=== PATIENT | female | born 2000 | race Caucasian/White ===

== ENCOUNTER 2024-01-15 17:43 | Inpatient (IN) | payer BC ==
[2024-01-15 18:16] VITALS: BMI 43.7
[2024-01-15] MEDS ORDERED: Zolpidem Tartrate 5 MG TAB PO PRN (20:02)
[2024-01-15] MEDS ORDERED: Ibuprofen 800 MG TAB PO PRN (20:02)
[2024-01-15] MEDS ORDERED: Lidocaine 1% (PF) 30 ML VIAL SC PRN (20:02)
[2024-01-15] MEDS ORDERED: HYDROcodone/Acetaminophen 5/325 mg Tablet PO PRN (20:02)
[2024-01-15] MEDS ORDERED: fentaNYL 50 mcg/mL 1 mL Vial SLOW IVP PRN (20:02)
[2024-01-15] MEDS ORDERED: Acetaminophen 500 MG TAB PO PRN (20:02)
[2024-01-15] MEDS ORDERED: Promethazine HCl 25 MG/ML VIAL IM PRN (20:02)
[2024-01-15] MEDS ORDERED: hydrALAZINE 20 MG/ML VIAL SLOW IVP PRN (20:02)
[2024-01-15] MEDS ORDERED: Oxytocin 30 units/NS 500 ML 500 ML IV SCH (20:15)
[2024-01-15 20:18] LABS: Hematocrit 31.6 % (34.9-44.5); Hemoglobin 10.4 g/dL (12.0-15.5); Mean Corpuscular HGB CONC 32.9 g/dL (32.0-36.0); Mean Corpuscular Volume 82.1 fL (81.6-98.3); Platelet Count 302 10x3/uL (150-450); RBC Distribution Width 14.7 % (11.5-14.5); Red Blood Cell (RBC) Count 3.85 10x6/uL (3.90-5.03); White Blood Cell (WBC) Count 10.1 10x3/uL (3.5-10.5)
[2024-01-15 20:28] LABS: ALT (SGPT) 10 U/L (8-55); AST (SGOT) 12 U/L (5-34); Alkaline Phosphatase 145 U/L (40-110); Anion Gap 14 mmol/L (10-20); BUN (Urea Nitrogen) 10 mg/dL (7.0-18.7); Bilirubin, Total 0.2 mg/dL (0.2-1.2); Calc. Creatinine Clearance 216 mL/min (70-130); Carbon Dioxide 21 mmol/L (22-29); Chloride 105 mmol/L (98-107); Estimated GFR 117; Glucose 90 mg/dL (70-105); Potassium 3.7 mmol/L (3.5-5.1); Sodium 136 mmol/L (136-145)
[2024-01-15] MEDS: Lactated Ringer's 1,000 ML IV SCH (21:22)
[2024-01-15 22:47] LABS: Syphilis Antibody Nonreactive (Nonreactive); Syphilis Antibody Index 0.07 S/CO (<1.00 Non-Reactive)
[2024-01-15 22:48] LABS: HBsAg Index 0.17 S/CO (0-0.99); Hep B Surf Ag - L&D Non-Reactive S/CO (NonReactive)
[2024-01-16] MEDS: Misoprostol 100 MCG TAB VAG SCH (02:16)
[2024-01-16] MEDS: Oxytocin 30 units/NS 500 ML 500 ML IV SCH (07:01)
[2024-01-16] MEDS: fentaNYL/Ropivacaine Epidural 100 ML ONE (09:04)
[2024-01-16] MEDS ORDERED: Ondansetron PF 4 MG/2 ML Vial IVP PRN ×2 (09:07→17:12)
[2024-01-16] MEDS ORDERED: Acetaminophen 325 MG TAB PO PRN (09:07)
[2024-01-16] MEDS ORDERED: Naloxone HCl 0.4 mg/ml Vial IVP PRN ×2 (09:07)
[2024-01-16] MEDS ORDERED: diphenhydrAMINE 50 MG/ML VIAL IVP PRN (09:07)
[2024-01-16] MEDS ORDERED: Promethazine HCl 25 MG/ML VIAL IM PRN ×2 (09:07→17:12)
[2024-01-16] MEDS ORDERED: Lactated Ringer's 500 ML IV PRN (09:07)
[2024-01-16] MEDS ORDERED: Moisturizing Cream (Eucerin) 113 GM JAR TOP PRN (09:07)
[2024-01-16] MEDS ORDERED: ePHEDrine Sulfate 50 MG/10 ML VIAL SLOW IVP PRN (09:07)
[2024-01-16] MEDS ORDERED: Communication Order-Pharmacy FS SCH (09:15)
[2024-01-16] MEDS ORDERED: fentaNYL 2 mcg/Ropivacaine 0.2% Epidural 100 ML CADD EPIDURAL SCH (09:15)
[2024-01-16] MEDS: Ondansetron PF 4 MG/2 ML Vial IVP PRN (10:48)
[2024-01-16] MEDS: Misoprostol 200 MCG TAB PR PRN (14:45)
[2024-01-16] MEDS: Tranexamic Acid 1,000 MG/10 ML VIAL IVP PRN (14:50)
[2024-01-16] MEDS: Carboprost 250 MCG/ML AMP IM PRN (14:50)
[2024-01-16] MEDS: Diphenoxylate HCl/Atropine Tablet PO PRN (15:19)
[2024-01-16] MEDS ORDERED: Preparation H Ointment 28 GM TUBE PR PRN (17:12)
[2024-01-16] MEDS ORDERED: diphenhydrAMINE 25 MG CAP PO PRN (17:12)
[2024-01-16] MEDS ORDERED: HYDROcodone/Acetaminophen 5/325 mg Tablet PO PRN (17:12)
[2024-01-16] MEDS ORDERED: Lanolin Ointment 7 GM TUBE TOP PRN (17:12)
[2024-01-16] MEDS ORDERED: hydrALAZINE 20 MG/ML VIAL SLOW IVP PRN (17:12)
[2024-01-16] MEDS ORDERED: Milk Of Magnesia 30 ML UDCUP PO PRN (17:12)
[2024-01-16] MEDS ORDERED: Bisacodyl 10 MG SUPP PR PRN (17:12)
[2024-01-16] MEDS: Ferrous Sulfate 325 MG TAB PO SCH (17:38)
[2024-01-16] MEDS: Boostrix 0.5 ML (Tdap) VIAL (>/=7 yrs of age) IM ONE (17:38)
[2024-01-16] MEDS: Ibuprofen 800 MG TAB PO SCH (20:03)
[2024-01-16] MEDS: Labetalol HCl 100 MG TAB PO SCH (20:05)
[2024-01-16] MEDS: Docusate 100 MG CAP PO SCH (20:05)
[2024-01-16] MEDS: Benzocaine-Menthol 82.5 ML CAN TOP PRN (20:54)
[2024-01-16] MEDS: HYDROcodone/Acetaminophen 5/325 mg Tablet PO PRN (23:08)
[2024-01-17 03:54] LABS: Hematocrit 25.1 % (34.9-44.5); Hemoglobin 8.1 g/dL (12.0-15.5)
[2024-01-17] MEDS: Prenatal Vitamin 1 TAB PO SCH (08:03)
[2024-01-17] MEDS: Ibuprofen 800 MG TAB PO SCH (12:03)
[2024-01-18 07:54] VITALS: BP 129/73; TEMP 97.8
== END 2024-01-18 14:00 | disposition home or self-care (01) | DRG 807 ==
LOC: CSHLD 17:43 → CSHPP 01-16 17:10
PROVIDERS: ADMIT Student in an Organized Health Care Education/Training Program; ATTEND Student in an Organized Health Care Education/Training Program
PROC: 10E0XZZ Delivery of Products of Conception, External Approach (ICD-10-PCS; principal; 2024-01-16)
PROC: 0KQM0ZZ Repair Perineum Muscle, Open Approach (ICD-10-PCS; 2024-01-16)
PROC: 3E033XZ Introduction of Vasopressor into Peripheral Vein, Percutaneous Approach (ICD-10-PCS; 2024-01-16)
DX: O13.4 Gestational [pregnancy-induced] hypertension without significant proteinuria, complicating childbirth (principal); Z37.0 Single live birth; O70.1 Second degree perineal laceration during delivery; Z3A.37 37 weeks gestation of pregnancy; Z88.0 Allergy status to penicillin
CPT/HCPCS: 36415; 51702; 80053; 85014; 85018; 85027; 86780; 86850; 86900; 86901; 87340; J2405; J2590; J3490